=== PATIENT | female | born 1960 | race Caucasian/White ===

== ENCOUNTER 2025-08-26 09:47 | Emergency (ER) | payer MEDICARE, MEDICAID, SELFPAY ==
[2025-08-26 09:52] VITALS: BP 117/74; PULSE 94; TEMP 36.8; O2SAT 98; BMI 37.9
--- NOTE | 2025-08-26 10:05 | PC.NURSE ---
abscess under right breast, area large, firm, red and tender
--- NOTE | 2025-08-26 10:16 | PC.NURSE ---
area cleansed and opened by ER DR at bedside. large amount of drainage obtained, dressing in place
--- NOTE | 2025-08-26 13:36 | ED_ITS ---
HPI HPI - General Adult General Chief complaint: Skin/Abscess/Foreign Body Stated complaint: BREAST PAIN Time Seen by Provider: 08/26/25 10:00 Source: patient Mode of arrival: walk-in History of Present Illness HPI narrative: Patient is a 65-year-old female presenting to the emergency department for evaluation of a right breast infection. Patient states she was diagnosed with an infection of her right breast approximately 2 weeks ago. She has been on Bactrim and Keflex, currently in the middle of her antibiotic course. However, she states that the infection has only gotten worse. She denies any systemic symptoms such as fevers or chills. No nausea or vomiting. No chest pain or shortness of breath. No nipple discharge or other skin changes of the breast. She states he had a normal mammogram a few years ago. Related Data Allergies Allergy/AdvReac Type Severity Reaction Status Date / Time No Known Drug Allergies Allergy Verified 08/26/25 09:56 Review of Systems ROS Status of ROS 10 or more systems reviewed and unremark able except as noted in history and below PFSH PFSH Social History Little interest or pleasure in doing things: not at all Feeling down, depressed, or hopeless: not at all Exam Narrative Exam Narrative: CONSTITUTIONAL: Well-appearing, answering questions and following commands appropriately SKIN: Was warm and dry. EYES: Sclerae white. EARS, NOSE, THROAT: Moist oral mucosa. RESPIRATORY: Nonlabored respirations CARDIOVASCULAR: Normal rate and regular rhythm. There is no S3, S4, murmur, rub. GASTROINTESTINAL: Abdomen is nondistended. MUSCULOSKELETAL: No peripheral edema. BREAST: There is a 2 cm x 2 cm fluctuant soft tissue mass consistent with an abscess under the right breast crease at the 6 o'clock position. There is no active drainage. There is surrounding/overlying erythema and tenderness to palpation. No crepitus. No nipple retractions. Constitutional Vital Signs, click to edit/add: Last Vital Signs Temp 98.2 F 08/26/25 09:52 Pulse 94 H 08/26/25 09:52 Resp 18 08/26/25 09:52 BP 117/74 08/26/25 09:52 Pulse Ox 98 08/26/25 09:52 O2 Del Method Room Air 08/26/25 09:52 Course Vital Signs Vital signs: Vital Signs Temperature 98.2 F 08/26/25 09:52 Pulse Rate 94 H 08/26/25 09:52 Respiratory Rate 18 08/26/25 09:52 Blood Pressure 117/74 08/26/25 09:52 Pulse Oximetry 98 08/26/25 09:52 Oxygen Delivery Method Room Air 08/26/25 09:52 Temperature 98.2 F 08/26/25 09:52 Pulse Rate 94 H 08/26/25 09:52 Respiratory Rate 18 08/26/25 09:52 Blood Pressure 117/74 08/26/25 09:52 Pulse Oximetry 98 08/26/25 09:52 Oxygen Delivery Method Room Air 08/26/25 09:52 Medical Decision Making MDM Narrative Medical decision making narrative: Patient is a 65-year-old female presenting to the emergency department for 2- week history of worsening right breast infection. Her vital signs are within normal limits. She is afebrile and hemodynamically stable. Her examination was consistent with a 2 cm x 2 cm soft tissue right breast abscess that will require I&D. The patient verbally consented to I&D. Using an 11 blade scalpel a 1 cm linear incision was made in the largest area of fluctuance. Approximately 10 cc of purulent drainage was expressed from the wound. The patient tolerated the procedure well with no complications. I do believe the patient is stable for discharge. Patient's presentation is most likely consistent with soft tissue abscess. They were instructed to follow up with her PCP for further care. Return precautions were given including any new or worsening symptoms. They were instructed to finish her course of Keflex and Bactrim which she already has prescribed to her. Patient understands and agrees to the plan. FINAL IMPRESSION: #Acute right breast soft tissue abscess requiring I&D DISPOSITION: Discharged home CONDITION: Good Discharge Plan Discharge Chief Complaint: Skin/Abscess/Foreign Body Clinical Impression: Abscess of skin or subcutaneous tissue Patient Disposition: Home, Self-Care Time of Disposition Decision: 10:15 Condition: Good Mode of Transportation: Private Vehicle Print Language: Korean Instructions: Abscess (ED), Incision and Drainage (ED) Additional Instructions: Follow up with your family DR, return to ER for any problems or concerns Referrals: Kelle Vincent RN, LEAVE SPECIALIST [Primary Care Provider] - 1 week Discharge Date/Time: 08/26/25 10:20 Procedures ED ID Incision & Drainage I&D Type: abcess Site: other (breast) Side (if applicable): right Technique: incised with #11 blade Amount of fluid (mL): 10 Irrigation: No Packing used: none Complications: pain
== END 2025-08-26 10:20 | disposition home or self-care (01) ==
PROVIDERS: Emergency Provider Student in an Organized Health Care Education/Training Program; PCP Nurse Practitioner
DX: N61.1 Abscess of the breast and nipple (principal)
CPT/HCPCS: 10060; 99281